=== PATIENT | female | born 1990 | race Caucasian/White ===

== ENCOUNTER 2019-07-23 16:47 | Emergency (ER) | payer OTHER ==
--- NOTE | 2019-07-23 17:23 | EDM.PDOC ---
ED HPI GENERAL MEDICAL PROBLEM - General Chief Complaint: Respiratory Problem Stated Complaint: ASTHMA Time Seen by Provider: 07/23/19 17:05 Source of Information: Reports: Patient, RN History Limitations: Reports: No Limitations - History of Present Illness INITIAL COMMENTS - FREE TEXT/NARRATIVE: 29 yo female from out of town presents with asthma exacerbation that began last night. Her inhaler is all gone and she doesn't see her provider until August, they won't give her another Rx until she is seen. Generally uses an inhaler every 2-3 weeks at the most. Is doing a little better now than she was last night. If visiting her parents locally for the weekend. Onset: Gradual Onset Date: 07/22/19 Duration: Hour(s):, Waxing/Waning Location: Reports: Chest Quality: Reports: Other (mild tightness) Severity: Mild Improves with: Reports: Medication Worsens with: Reports: Other (? trees/grasses) Context: Reports: Other (hx of asthma, mild) Associated Symptoms: Reports: Cough, Shortness of Breath (not now, was a little SOB last night) Treatments [employer] REPRESENTATIVE: Reports: Other (see below) (none) - Related Data Allergies Allergy/AdvReac Type Severity Reaction Status Date / Time No Known Allergies Allergy Verified 07/23/19 17:06 Home Meds: Home Meds Albuterol Sulfate [Albuterol Sulfate Hfa] 2 puff INH ASDIRECTED 07/23/19 [ History] Albuterol Sulfate [Proair Hfa] 2 puff IH Q4H PRN #1 hfa.aer.ad 07/23/19 [Rx] Loratadine [Claritin] 1 tab PO DAILY 07/23/19 [History] Multivitamin [Multivitamins] 1 tab PO DAILY 07/23/19 [History] Omeprazole 1 tab PO DAILY 07/23/19 [History] Past Medical History HEENT History: Reports: Impaired Vision, Other (See Below) Other HEENT History: environtmental allergies Respiratory History: Reports: Asthma Gastrointestinal History: Reports: GERD PHARMACOLOGY ASSOCIATE History: Reports: Other (See Below) Other PHARMACOLOGY ASSOCIATE History: PCOS Musculoskeletal History: Reports: Fracture - Past Surgical History HEENT Surgical History: Reports: Myringotomy w Tube(s) Musculoskeletal Surgical History: Reports: Other (See Below) Other Musculoskeletal Surgeries/Procedures:: wrist fx repair Social & Family History - Tobacco Use Smoking Status *Q: Never Smoker - Recreational Drug Use Recreational Drug Use: No ED ROS GENERAL - Review of Systems Review Of Systems: ROS reveals no pertinent complaints other than HPI. Constitutional: Reports: No Symptoms HEENT: Reports: No Symptoms Respiratory: Reports: Shortness of Breath, Wheezing, Cough. Denies: Sputum, Hemoptysis Cardiovascular: Reports: No Symptoms Skin: Reports: No Symptoms ED EXAM, GENERAL - Physical Exam Exam: See Below Exam Limited By: No Limitations General Appearance: Alert, WD/WN, No Apparent Distress Eye Exam: Bilateral Eye: Normal Inspection Ears: Normal External Exam, Normal Canal, Hearing Grossly Normal, Normal TMs Ear Exam: Bilateral Ear: Auricle Normal, Canal Normal, TM normal Nose: Normal Inspection, Normal Mucosa, No Blood Throat/Mouth: Normal Inspection, Normal Lips, Normal Oropharynx, Normal Voice, No Airway Compromise Head: Atraumatic, Normocephalic Neck: Normal Inspection Respiratory/Chest: No Respiratory Distress, No Accessory Muscle Use, Wheezing ( faint expiratory). No: Decreased Breath Sounds, Crackles, Rales, Rhonchi, Accessory Muscle Use, Retractions Cardiovascular: Regular Rate, Rhythm, No Edema Extremities: Normal Inspection Neurological: Alert, Oriented, CN II-XII Intact, Normal Cognition, No Motor/ Sensory Deficits Psychiatric: Normal Affect, Normal Mood Skin Exam: Warm, Dry, Intact, Normal Color, No Rash Course - Vital Signs Last Recorded V/S: Last Vital Signs Temp 36.7 C 07/23/19 17:05 Pulse 89 07/23/19 17:05 Resp 16 07/23/19 17:05 BP 152/96 H 07/23/19 17:05 Pulse Ox 98 07/23/19 17:05 Departure - Departure Time of Disposition: 17:23 Disposition: Home, Self-Care 01 Condition: Good Clinical Impression: Mild asthma Qualifiers: Asthma persistence: intermittent Asthma complication type: with acute exacerbation Qualified Code(s): J45.21 - Mild intermittent asthma with (acute) exacerbation - Discharge Information *PRESCRIPTION DRUG MONITORING PROGRAM REVIEWED*: No *COPY OF PRESCRIPTION DRUG MONITORING REPORT IN PATIENT NATTY: No Prescriptions: Albuterol Sulfate [Proair Hfa] 2 puff IH Q4H PRN #1 hfa.aer.ad PRN Reason: Wheezing Instructions: Bronchospasm, Adult, [id number] Referrals: PCP,None [Primary Care Provider] - Additional Instructions: Use Albuterol as directed for control of wheezing. Recheck if worse.
== END 2019-07-23 17:30 | disposition home or self-care (01) ==
LOC: JP.ED 16:47
DX: J45.21 Mild intermittent asthma with (acute) exacerbation (principal); K21.9 Gastro-esophageal reflux disease without esophagitis; Z79.899 Other long term (current) drug therapy
CPT/HCPCS: 99284